=== PATIENT | male | born 1945 | race Caucasian/White ===

== ENCOUNTER 2017-08-19 08:01 | Day surgery (SDC) | payer MEDICARE ==
[~2017-08-19] VITALS: Ht 177.8 cm; Wt 97.5 kg
[~2017-08-19 08:01] MED LIST: Aspir 8181 MG PO; DEXL60CA3 PO; DIPH50 PO; EPIN.3I IM; EPIPEN 2-P0.3 MG/0.3 IM; FAMO20 PO; HYDR1TAB94 PO; LOSA50 PO; LOSARTAN-HCTZ1 EACH PO; METF500 PO; NAPR500 PO; OLME20 PO; OXYACE7.5T PO; PRAV20 PO; PRED20 PO; Pravachol PO; RXOXYACE PO; SOMA250 MG PO; TAMS.4ER PO; VITAMIN D32000 UNIT PO; [UNRECOGNIZED DRUG - REMARK]
== END 2017-08-19 22:44 | disposition home or self-care (01) ==
LOC: ORSCMMR 08:01 → ORD 09:00 → ORSCMMR 22:44
PROVIDERS: Internal Medicine Gastroenterology
PROC: 0DBH8ZX Excision of Cecum, Via Natural or Artificial Opening Endoscopic, Diagnostic (ICD-10-PCS; principal; 2017-08-19 09:00)
PROC: 0DBK8ZX Excision of Ascending Colon, Via Natural or Artificial Opening Endoscopic, Diagnostic (ICD-10-PCS; principal; 2017-08-19 09:00)
PROC: 0DBL8ZX Excision of Transverse Colon, Via Natural or Artificial Opening Endoscopic, Diagnostic (ICD-10-PCS; principal; 2017-08-19 09:00)
DX: Z12.11 Encounter for screening for malignant neoplasm of colon (principal); D12.0 Benign neoplasm of cecum; D12.2 Benign neoplasm of ascending colon; D12.3 Benign neoplasm of transverse colon; K57.30 Diverticulosis of large intestine without perforation or abscess without bleeding; K64.8 Other hemorrhoids; K64.4 Residual hemorrhoidal skin tags; Z86.010 Personal history of colon polyps; K21.9 Gastro-esophageal reflux disease without esophagitis; G47.30 Sleep apnea, unspecified; I10 Essential (primary) hypertension; E11.9 Type 2 diabetes mellitus without complications; Z87.891 Personal history of nicotine dependence; Z79.84 Long term (current) use of oral hypoglycemic drugs; Z79.82 Long term (current) use of aspirin; Z79.899 Other long term (current) drug therapy; E78.00 Pure hypercholesterolemia, unspecified
CPT/HCPCS: 82947; 88305; J2250; J2310; J3010; J7030